=== PATIENT | male | born 1990 | race Caucasian/White ===

== ENCOUNTER 2017-11-03 19:15 | Emergency (ER) | payer OTHER ==
[~2017-11-03] VITALS: Ht 167.6 cm; Wt 89.8 kg
[2017-11-03 19:22] VITALS: BP 163/96
--- NOTE | 2017-11-03 19:25 | NUR ---
PT.AMBULATED TO [facility]
--- NOTE | 2017-11-03 20:39 | NUR ---
PT AT XRAY
--- NOTE | 2017-11-03 20:39 | NUR ---
XRAY CALLED, WILL BRING PT TO -A
--- NOTE | 2017-11-03 20:49 | NUR ---
PT RETURN FROM XRAY
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
[2017-11-03] MEDS ORDERED: NACL 0.9% 1,000 ML IV ONE (21:20)
[2017-11-03] MEDS ORDERED: FAMOTIDINE 20 MG/2 ML VIAL IVP ONE (21:20)
[2017-11-03] MEDS ORDERED: ONDANSETRON 4 MG/2 ML VIAL IVP ONE (21:20)
[2017-11-03 22:05] LABS: ALBUMIN 3.8 g/dL (3.4-5.0); BILIRUBIN,DIRECT 0.1 mg/dL (0.0-0.3); CREATININE 0.8 mg/dL (0.7-1.3); TOTAL BILIRUBIN 0.4 mg/dL (0.0-1.0)
[2017-11-03 22:19] LABS: APPEARANCE,URINE CLEAR (CLEAR); BILIRUBIN,URINE NEGATIVE (NEGATIVE); BLOOD, URINE TRACE-I (NEGATIVE); COLOR,URINE YELLOW (YELLOW); LEUKOCYTE ESTERASE ,URINE NEGATIVE (NEGATIVE); NITRITE, URINE NEGATIVE (NEGATIVE); PH,URINE 6.5 (5.0-9.0); UGLUCOSE NEGATIVE (NEGATIVE)
[2017-11-03 22:28] LABS: HEMATOCRIT 48.6 % (36-52); HEMOGLOBIN 16.3 g/dL (12.0-18.0); MEAN CORPUSCULAR VOLUME 83 fL (80-94); RED BLOOD CELL COUNT(AUTO) 5.83 MIL/uL (4.20-6.10); WHITE BLOOD COUNT (AUTO) 8.8 K/uL (4.8-10.8)
[2017-11-03 22:29] LABS: MEAN CORPUSCULAR HEMOGLOBIN 28 pg (27-31); MEAN CORPUSCULAR HGB CONC 34 g/dL (33-37); PLATELET COUNT (AUTO) 218 K/uL (140-450); RED CELL DISTRIBUTION WIDTH 13.9 % (11.6-13.7)
[2017-11-03 22:30] LABS: BASOPHILS % (AUTO) 0.1 % (0.0-2.0); EOSINOPHILS # (AUTO) 0.1 K/uL (0-0.4); LYMPHOCYTES # (AUTO) 2.2 K/uL (2.0-11.5); LYMPHOCYTES % (AUTO) 24.4 % (20.5-51.1); MONOCYTES # (AUTO) 0.7 K/uL (0.8-1.0); MONOCYTES % (AUTO) 8.1 % (1.7-9.3); NEUTROPHILS # (AUTO) 5.9 K/uL (1.8-7.7); NEUTROPHILS % (AUTO) 66.4 % (42.2-75.2)
[2017-11-03 22:46] LABS: RBC,URINE 0-5 (RARE) /HPF (0-5); WBC,URINE 0-5 (RARE) /HPF (0-5)
--- NOTE | 2017-11-03 23:11 | NUR ---
Patient being evaluated by physician at bedside.
[2017-11-03 23:27] VITALS: BP 144/96
--- NOTE | 2017-11-03 23:27 | NUR ---
Patient discharged with v/s stable. Written and verbal after care instructions given and explained. Patient alert, oriented and verbalized understanding of instructions. Ambulatory with steady gait. All questions addressed prior to discharge. ID band removed. Patient advised to follow up with PMD. Rx of OMEPRAZOLE 40 MG, ZOFRAN 4 MG ODT given. Patient educated on indication of medication including possible reaction and side effects. Opportunity to ask questions provided and answered.
== END 2017-11-03 23:27 | disposition home or self-care (01) ==
LOC: MED 19:15
DX: K29.00 Acute gastritis without bleeding (principal); F10.10 Alcohol abuse, uncomplicated
CPT/HCPCS: 36415; 74022; 80076; 81001; 82565; 83690; 85025; 96361; 96374; 96375; 99285; J2405; J3490

== ENCOUNTER 2017-12-05 17:16 | Emergency (ER) | payer OTHER ==
[~2017-12-05] VITALS: Ht 172.7 cm; Wt 87.6 kg
[2017-12-05 17:28] VITALS: BP 133/73
--- NOTE | 2017-12-05 17:34 | NUR ---
PT AMBULATES BACK TO THE LOBBY
--- NOTE | 2017-12-05 18:55 | NUR ---
Pt presents to ED with n/v/d x2 days with lower central abdominal pain 10/10 x2 days. Pt states pain intermittent. Pt states no urination drainage. VSS. ER MD aware. continue to monitor.
[2017-12-05] MEDS ORDERED: NACL 0.9% 1,000 ML IV ONE (19:45)
[2017-12-05] MEDS ORDERED: ONDANSETRON 4 MG/2 ML VIAL IVP ONE (19:45)
[2017-12-05 20:59] LABS: BASOPHILS % (AUTO) 0.3 % (0.0-2.0); EOSINOPHILS # (AUTO) 0.2 K/uL (0-0.4); EOSINOPHILS % (AUTO) 1.8 % (0.0-4.0); HEMATOCRIT 47.3 % (36-52); HEMOGLOBIN 15.9 g/dL (12.0-18.0); LYMPHOCYTES # (AUTO) 2.6 K/uL (2.0-11.5); LYMPHOCYTES % (AUTO) 29.8 % (20.5-51.1); MEAN CORPUSCULAR HEMOGLOBIN 28 pg (27-31); MEAN CORPUSCULAR HGB CONC 34 g/dL (33-37); MEAN CORPUSCULAR VOLUME 83.2 fL (80-94); MONOCYTES # (AUTO) 1.1 K/uL (0.8-1.0); MONOCYTES % (AUTO) 12.4 % (1.7-9.3); NEUTROPHILS # (AUTO) 4.9 K/uL (1.8-7.7); NEUTROPHILS % (AUTO) 55.7 % (42.2-75.2); PLATELET COUNT (AUTO) 236 K/uL (140-450); RED BLOOD CELL COUNT(AUTO) 5.69 MIL/uL (4.20-6.10); RED CELL DISTRIBUTION WIDTH 13.9 % (11.6-13.7); WHITE BLOOD COUNT (AUTO) 8.8 K/uL (4.8-10.8)
[2017-12-05 21:11] LABS: ANION GAP 15.1 (8-16); CARBON DIOXIDE 28.7 mmol/L (21-32); CREATININE 0.8 mg/dL (0.7-1.3); POTASSIUM 3.8 mmol/L (3.5-5.1)
[2017-12-05 21:17] LABS: ALBUMIN 3.5 g/dL (3.4-5.0); TOTAL BILIRUBIN 0.6 mg/dL (0.0-1.0)
[2017-12-05 21:27] LABS: APPEARANCE,URINE CLEAR (CLEAR); BILIRUBIN,URINE NEGATIVE (NEGATIVE); BLOOD, URINE 1+ (NEGATIVE); COLOR,URINE YELLOW (YELLOW); LEUKOCYTE ESTERASE ,URINE NEGATIVE (NEGATIVE); NITRITE, URINE NEGATIVE (NEGATIVE); UGLUCOSE NEGATIVE (NEGATIVE)
[2017-12-05 21:38] LABS: BARBITURATE, URINE NEG. ng/ml (NEG <=200); BENZODIAZEPINE, URINE NEG. ng/mL (NEG <=200); CANNABINOID, URINE NEG. ng/mL (NEG <=50); COCAINE, URINE NEG. ng/mL (NEG <=300); OPIATE, URINE NEG. ng/mL (NEG <=2000); PHENCYCLIDINE SCREEN,URINE NEG. ng/mL (NEG <=25)
[2017-12-05 21:57] VITALS: BP 133/73
--- NOTE | 2017-12-05 21:57 | NUR ---
Patient discharged with v/s stable. Written and verbal after care instructions given and explained. Patient verbalized understanding. Ambulatory with steady gait. All questions addressed prior to discharge. Advised to follow up with PMD.
[2017-12-05 22:18] LABS: RBC,URINE 0-5 (RARE) /HPF (0-5); WBC,URINE 0-5 (RARE) /HPF (0-5)
== END 2017-12-05 21:57 | disposition home or self-care (01) ==
LOC: MED 17:16
DX: R11.2 Nausea with vomiting, unspecified (principal); E86.0 Dehydration; R03.0 Elevated blood-pressure reading, without diagnosis of hypertension; F10.239 Alcohol dependence with withdrawal, unspecified
CPT/HCPCS: 36415; 80053; 80305; 81001; 83690; 85025; 96361; 96374; 99284; J2405; J7030

== ENCOUNTER 2018-07-31 04:55 | Emergency (ER) | payer OTHER ==
[~2018-07-31] VITALS: Ht 177.8 cm; Wt 90.7 kg
[2018-07-31 05:00] VITALS: BP 134/87
--- NOTE | 2018-07-31 05:00 | NUR ---
TO BED # 8 AMBULATORY, REPORT GIVEN TO JASON CHENG
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
--- NOTE | 2018-07-31 05:22 | NUR ---
DR ARREGUIN AT BEDSIDE FOR PT EVALUATION
[2018-07-31] MEDS ORDERED: ONDANSETRON 4 MG ODT PO ONE (05:45)
[2018-07-31] MEDS ORDERED: DICYCLOMINE 20 MG/2 ML VIAL IM ONE (05:45)
--- NOTE | 2018-07-31 06:17 | NUR ---
PT APPEARS TO BE SLEEPING IN NO APPEARENT DISTRESS. WILL CONTINUE TO MONITOR
[2018-07-31 07:14] VITALS: BP 134/87
--- NOTE | 2018-07-31 07:15 | NUR ---
Patient discharged with v/s stable. Written and verbal after care instructions given and explained. Patient verbalized understanding. Ambulatory with steady gait. All questions addressed prior to discharge. Advised to follow up with PMD. WALKED PATIENT TO CAR SO HE COULD GET PHONE TO CALL FOR AN UBER.
== END 2018-07-31 07:15 | disposition home or self-care (01) ==
LOC: MED 04:55
DX: F43.20 Adjustment disorder, unspecified (principal); R11.2 Nausea with vomiting, unspecified; R19.7 Diarrhea, unspecified; F12.90 Cannabis use, unspecified, uncomplicated
CPT/HCPCS: 99283; J0500; Q0162

== ENCOUNTER 2018-08-02 12:16 | Emergency (ER) | payer OTHER ==
[~2018-08-02] VITALS: Ht 182.9 cm; Wt 90.7 kg
[2018-08-02 12:27] VITALS: BP 159/108
[2018-08-02 13:35] LABS: LYMPHOCYTES # (AUTO) 2.3 K/uL (2.0-11.5); MONOCYTES # (AUTO) 1.3 K/uL (0.8-1.0); WHITE BLOOD COUNT (AUTO) 10.2 K/uL (4.8-10.8)
[2018-08-02 13:41] LABS: MEAN CORPUSCULAR HGB CONC 34 g/dL (33-37)
--- NOTE | 2018-08-02 13:42 | NUR ---
PT AMBULATED TO ER BED 02
[2018-08-02 13:43] LABS: HEMATOCRIT 55.9 % (36-52); HEMOGLOBIN 18.7 g/dL (12.0-18.0); MEAN CORPUSCULAR VOLUME 81.8 fL (80-94); RED BLOOD CELL COUNT(AUTO) 6.83 MIL/uL (4.20-6.10)
[2018-08-02 13:44] LABS: BASOPHILS % (AUTO) 0.2 % (0.0-2.0); EOSINOPHILS % (AUTO) 1.5 % (0.0-4.0); LYMPHOCYTES % (AUTO) 22.1 % (20.5-51.1); MEAN CORPUSCULAR HEMOGLOBIN 27 pg (27-31); MONOCYTES % (AUTO) 12.7 % (1.7-9.3); NEUTROPHILS # (AUTO) 6.5 K/uL (1.8-7.7); NEUTROPHILS % (AUTO) 63.5 % (42.2-75.2); PLATELET COUNT (AUTO) 287 K/uL (140-450); RED CELL DISTRIBUTION WIDTH 13.1 % (11.6-13.7)
[2018-08-02 13:45] LABS: EOSINOPHILS # (AUTO) 0.2 K/uL (0-0.4)
--- NOTE | 2018-08-02 13:45 | NUR ---
28 YO MALE BIB . AMBULATORY W/ STEADY GATE. C/O ABD PAIN, +NAUSEA,+VOMITING, +DIARRHEA. PT STATES SYMPTOMS STARTED TUESDAY. PT STATES 10 OUT OF 10 AMBDOMINAL PAIN IN THE UPPER MEDIAL QUADTRANT. PT CAME TO [facility] ON TUESDAY FOR THE SAME SYMPTOMS AND SYMPTOMS HAVE SINCE GOTTEN WORSE. PT STATES VOMITING IS CLEAR EMESIS. PT STATES DIAREAH HAS NO SIGNS OF BLOOD OR DARK STOOL. SKIN TURGOR IS NON-TENTING. AAOX4. PT STATES TO HAVE BEEN DRINKING HEAVILY TUESDAY NIGHT. PT IN GOWN IN BED; HOB ELEVATED; BED IN LOWER LOCKED POSITION; SIDERAILS UP X1. VSS, RESPIRATIONS EQUAL WITH OUT DISTRESS. ER MD MADE AWARE OF PATIENTS STATUS. HX: ASTHMA, HYPERTENSION RX: INHALER, HYPERTENSIVE MEDICATION (PT DOES NOT REMEBER THE NAME)
[2018-08-02 13:49] LABS: ALBUMIN 4.6 g/dL (3.4-5.0); ANION GAP 19.5 (8-16); CARBON DIOXIDE 30.2 mmol/L (21-32); CREATININE 0.9 mg/dL (0.7-1.3); POTASSIUM 4.7 mmol/L (3.5-5.1); TOTAL BILIRUBIN 2.1 mg/dL (0.0-1.0)
[2018-08-02] MEDS ORDERED: ONDANSETRON 4 MG/2 ML VIAL IVP ONE (14:00)
[2018-08-02] MEDS ORDERED: KETOROLAC 30 MG/ML VIAL IVP ONE (14:00)
[2018-08-02] MEDS ORDERED: ONDANSETRON 4 MG ODT PO ONE (14:00)
[2018-08-02] MEDS ORDERED: NACL 0.9% 1,000 ML IV ONE (14:00)
--- NOTE | 2018-08-02 14:15 | NUR ---
IV STARTED: FLUSHED WELL W/O RESISTANCE. NO REDNESS OF SWELLING NOTED. PT TOLERATED WELL.
[2018-08-02 14:53] VITALS: BP 143/108
--- NOTE | 2018-08-02 14:53 | NUR ---
Patient discharged with v/s stable. Written and verbal after care instructions given and explained. Patient alert, oriented and verbalized understanding of instructions. Ambulatory with steady gait. All questions addressed prior to discharge. ID band removed. Patient advised to follow up with PMD. Rx of Cipro,motrin, zofran, immodium given. Patient educated on indication of medication including possible reaction and side effects. Opportunity to ask questions provided and answered.
== END 2018-08-02 14:53 | disposition home or self-care (01) ==
LOC: MED 12:16
DX: R10.13 Epigastric pain (principal); R11.2 Nausea with vomiting, unspecified; R19.7 Diarrhea, unspecified; J45.909 Unspecified asthma, uncomplicated; I10 Essential (primary) hypertension
CPT/HCPCS: 36415; 80053; 83690; 85025; 96361; 96374; 96375; 99283; J1885; J2405; J7030

== ENCOUNTER 2019-03-25 13:15 | Emergency (ER) | payer OTHER ==
[~2019-03-25] VITALS: Ht 172.7 cm; Wt 86.2 kg
[2019-03-25 13:38] VITALS: BP 165/90
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
--- NOTE | 2019-03-25 15:11 | NUR ---
DR. ANN AT BEDSIDE
[2019-03-25] MEDS ORDERED: NACL 0.9% 1,000 ML IV ONE (15:20)
--- NOTE | 2019-03-25 15:31 | NUR ---
DATA CENTER PROJECT MANAGER AT BEDSIDE
--- NOTE | 2019-03-25 15:37 | NUR ---
PRODUCTION BORING MACHINE OPERATOR AT BEDSIDE
[2019-03-25 15:39] LABS: BASOPHILS % (AUTO) 0.4 % (0.0-2.0); EOSINOPHILS % (AUTO) 0.4 % (0.0-4.0); HEMATOCRIT 44.7 % (36-52); HEMOGLOBIN 15.1 g/dL (12.0-18.0); LYMPHOCYTES # (AUTO) 1.1 K/uL (2.0-11.5); MEAN CORPUSCULAR HEMOGLOBIN 28 pg (27-31); MEAN CORPUSCULAR HGB CONC 34 g/dL (33-37); MONOCYTES # (AUTO) 1.2 K/uL (0.8-1.0); MONOCYTES % (AUTO) 11.3 % (1.7-9.3); NEUTROPHILS # (AUTO) 7.9 K/uL (1.8-7.7); NEUTROPHILS % (AUTO) 76.9 % (42.2-75.2); PLATELET COUNT (AUTO) 191 K/uL (140-450); RED BLOOD CELL COUNT(AUTO) 5.32 MIL/uL (4.20-6.10); RED CELL DISTRIBUTION WIDTH 14.2 % (11.6-13.7); WHITE BLOOD COUNT (AUTO) 10.3 K/uL (4.8-10.8)
[2019-03-25] MEDS ORDERED: KETOROLAC 30 MG/ML VIAL IVP ONE (15:55)
[2019-03-25 15:57] LABS: ALBUMIN 3.6 g/dL (3.4-5.0); ANION GAP 15.2 (8-16); CARBON DIOXIDE 28.3 mmol/L (21-32); CREATININE 0.7 mg/dL (0.7-1.3); POTASSIUM 3.5 mmol/L (3.5-5.1); TOTAL BILIRUBIN 0.9 mg/dL (0.0-1.0)
--- NOTE | 2019-03-25 16:28 | NUR ---
INFORMED EMT OF ORTHO IMMOBILIZER ORDER
[2019-03-25 16:40] VITALS: BP 127/69
--- NOTE | 2019-03-25 16:40 | NUR ---
Patient discharged with v/s stable. Written and verbal after care instructions given and explained. Patient alert, oriented and verbalized understanding of instructions. Ambulatory with steady gait. All questions addressed prior to discharge. ID band removed. Patient advised to follow up with PMD. Rx of IBU given. Patient educated on indication of medication including possible reaction and side effects. Opportunity to ask questions provided and answered.
== END 2019-03-25 16:40 | disposition home or self-care (01) ==
LOC: MED 13:15
DX: S80.02XA Contusion of left knee, initial encounter (principal); E86.0 Dehydration; F10.10 Alcohol abuse, uncomplicated; R55 Syncope and collapse; F41.9 Anxiety disorder, unspecified; W19.XXXA Unspecified fall, initial encounter; Y93.89 Activity, other specified; Y92.89 Other specified places as the place of occurrence of the external cause; Y99.8 Other external cause status
CPT/HCPCS: 29505; 36415; 73590; 80053; 85025; 96361; 96374; 99284; J1885; J7030; Q0092

== ENCOUNTER 2019-12-17 14:31 | Emergency (ER) | payer OTHER ==
[~2019-12-17] VITALS: Ht 172.7 cm; Wt 79.8 kg
[2019-12-17 14:37] VITALS: BP 146/94
--- NOTE | 2019-12-17 14:43 | NUR ---
Patient ambulated to bed 11. RN evaluating patient at bedside.
--- NOTE | 2019-12-17 14:50 | NUR ---
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 PT STATES HE HAS BEEN DRINKING HEAVILY FOR THE LAST 2 WKS, HAD ONE DRINK TODAY AND INHALING KEYBOARD DELIVERY REPRESENTATIVE AND IS NOW FEELING WORSE. PT STATES HE FEELS "SHAKY" AND ANXIOUS. RR EVEN AND UNLABORED. PT PLACED ON THE MONITOR. WILL CONTINUE TO MONITOR. MEDHX: ANXIETY ALLERGIES: NKA
--- NOTE | 2019-12-17 15:18 | NUR ---
DR EM AT BEDSIDE EXAMINING PT
[2019-12-17 15:32] VITALS: BP 138/88
--- NOTE | 2019-12-17 15:34 | NUR ---
Patient discharged with v/s stable. Written and verbal after care instructions given and explained. Patient alert, oriented and verbalized understanding of instructions. Ambulatory with steady gait. All questions addressed prior to discharge. ID band removed. Patient advised to follow up with PMD. Rx of ZOFRAN AND LORAZEPAM given. Patient educated on indication of medication including possible reaction and side effects. Opportunity to ask questions provided and answered.
== END 2019-12-17 15:34 | disposition home or self-care (01) ==
LOC: MED 14:31
DX: F10.239 Alcohol dependence with withdrawal, unspecified (principal); F18.90 Inhalant use, unspecified, uncomplicated; R03.0 Elevated blood-pressure reading, without diagnosis of hypertension; F41.9 Anxiety disorder, unspecified; Z98.890 Other specified postprocedural states
CPT/HCPCS: 99283

== ENCOUNTER 2020-06-11 11:24 | Emergency (ER) | payer OTHER ==
[~2020-06-11] VITALS: Ht 170.2 cm; Wt 80.3 kg
[2020-06-11 11:46] VITALS: BP 145/93
[2020-06-11] MEDS ORDERED: ONDANSETRON 4 MG/2 ML VIAL IVP ONE (11:55)
[2020-06-11] MEDS ORDERED: FAMOTIDINE 20 MG/2 ML VIAL IVP ONE (11:55)
[2020-06-11] MEDS ORDERED: NACL 0.9% 1,000 ML IV ONE (11:55)
--- NOTE | 2020-06-11 12:10 | NUR ---
Pt reports binge drinking x3 weeks and using meth for the 1st time yesterday. Pt states today he woke up nauseous, vomiting and shakey. Pt also c/o epigastric/abd pain that began while he was vomiting. Denies chest pain/sob. Abd soft/flat and non tender to palpation. LBM today - regular per pt. Bowel sounds present x4. Bed in low position, side rail up x1.
[2020-06-11 12:11] LABS: BASOPHILS % (AUTO) 0.5 % (0.0-2.0); EOSINOPHILS # (AUTO) 0.1 K/uL (0-0.4); EOSINOPHILS % (AUTO) 1.2 % (0.0-4.0); HEMATOCRIT 46.5 % (36-52); HEMOGLOBIN 16.2 g/dL (12.0-18.0); LYMPHOCYTES # (AUTO) 1.6 K/uL (2.0-11.5); LYMPHOCYTES % (AUTO) 21.4 % (20.5-51.1); MEAN CORPUSCULAR HEMOGLOBIN 30 pg (27-31); MEAN CORPUSCULAR HGB CONC 35 g/dL (33-37); MONOCYTES % (AUTO) 13.9 % (1.7-9.3); NEUTROPHILS # (AUTO) 4.7 K/uL (1.8-7.7); PLATELET COUNT (AUTO) 193 K/uL (140-450); RED BLOOD CELL COUNT(AUTO) 5.41 MIL/uL (4.20-6.10); WHITE BLOOD COUNT (AUTO) 7.5 K/uL (4.8-10.8)
[2020-06-11 12:30] LABS: ALBUMIN 4.1 g/dL (3.4-5.0); ANION GAP 12.8 (8-16); CARBON DIOXIDE 32.4 mmol/L (21-32); CREATININE 0.8 mg/dL (0.6-1.3); POTASSIUM 3.2 mmol/L (3.5-5.1); TOTAL BILIRUBIN 0.9 mg/dL (0.0-1.0)
[2020-06-11] MEDS ORDERED: LORazepam 2 MG/ML VIAL IVP ONE (12:55)
[2020-06-11] MEDS ORDERED: POTASSIUM CHLORIDE 20% 40 MEQ/15 ML UDC PO ONE (13:10)
[2020-06-11] MEDS ORDERED: MAGNESIUM OXIDE 400 MG TAB PO ONE (13:10)
[2020-06-11 14:28] VITALS: BP 145/93
== END 2020-06-11 14:29 | disposition home or self-care (01) ==
LOC: MED 11:24
DX: F10.239 Alcohol dependence with withdrawal, unspecified (principal); F15.10 Other stimulant abuse, uncomplicated; F12.90 Cannabis use, unspecified, uncomplicated; F17.210 Nicotine dependence, cigarettes, uncomplicated; I10 Essential (primary) hypertension; Z71.6 Tobacco abuse counseling; Z87.81 Personal history of (healed) traumatic fracture
CPT/HCPCS: 36415; 80053; 83690; 85025; 93005; 96361; 96374; 96375; 99284; J2060; J2405; J3490; J7030

== ENCOUNTER 2020-07-02 12:42 | Emergency (ER) | payer OTHER ==
[~2020-07-02] VITALS: Ht 175.3 cm; Wt 78.9 kg
[2020-07-02 12:49] VITALS: BP 142/108
--- NOTE | 2020-07-02 12:49 | NUR ---
PT AMBULATED TO BED 11, STEADY GAIT.
--- NOTE | 2020-07-02 12:54 | NUR ---
DR. BERRIOS AT BEDSIDE.
--- NOTE | 2020-07-02 12:58 | NUR ---
30 Y/M PRESENTS TO ED FOR ALCOHOL DETOXIFICATION. PT REPORTS HE HAS BEEN DRINKING X 3 WEEKS ([employer] AND [employer]). REPORTS LAST DRINK WAS AT 2AM THIS MORNING. PT IS ALSO REPOARTS 8/10 HEAD PAIN, WITH L ARM NUMBNESS, CP 8/10 ON AND OFF. PT ALSO REPORTS DARK URINE, DENIES DYSURIA OR HEMATURIA. PT A & O X 4. RR EVEN AND UNLABORED. PMH- ASTHMA, HTN, ANXIETY NKDA
[2020-07-02] MEDS ORDERED: chlordiazePOXIDE 25 MG CAP PO STA (13:00)
[2020-07-02] MEDS ORDERED: ONDANSETRON 4 MG ODT PO ONE (13:05)
[2020-07-02 13:46] VITALS: BP 142/108
--- NOTE | 2020-07-02 13:47 | NUR ---
Patient discharged with v/s stable. Written and verbal after care instructions given and explained. Patient alert, oriented and verbalized understanding of instructions. Ambulatory with steady gait. All questions addressed prior to discharge. ID band removed. Patient advised to follow up with PMD. Rx of ZOFRAN AND LIBRIUM given. Patient educated on indication of medication including possible reaction and side effects. Opportunity to ask questions provided and answered. PT GIVEN A LIST OF RESOURCES FOR ALCOHOL WITHDRAWAL PROGRAMS.
== END 2020-07-02 13:47 | disposition home or self-care (01) ==
LOC: MED 12:42
DX: F10.239 Alcohol dependence with withdrawal, unspecified (principal); R20.2 Paresthesia of skin; I10 Essential (primary) hypertension
CPT/HCPCS: 93005; 99283; Q0162

== ENCOUNTER 2020-10-19 15:12 | Emergency (ER) | payer OTHER ==
[~2020-10-19] VITALS: Ht 175.3 cm; Wt 81.6 kg
[2020-10-19 15:20] VITALS: BP 121/90
--- NOTE | 2020-10-19 15:28 | NUR ---
PATIENT AMBULATED TO BED 1.
[2020-10-19] MEDS ORDERED: NACL 0.9% 1,000 ML IV ONE ×2 (15:35→17:00)
[2020-10-19] MEDS ORDERED: KETOROLAC 30 MG/ML VIAL IVP ONE (15:35)
[2020-10-19] MEDS ORDERED: ONDANSETRON 4 MG/2 ML VIAL IVP ONE (15:35)
[2020-10-19] MEDS ORDERED: PANTOPRAZOLE 40 MG INJ VIAL IVP ONE (15:40)
--- NOTE | 2020-10-19 15:42 | NUR ---
LAB at pt bedside.
--- NOTE | 2020-10-19 15:44 | NUR ---
30 y/o male c/o abdominal pain 03/07. Pt states he has been drinking [id number], feels dehydrated and weak X1day. Pt states he felt alcohol withdrawls and palpations so "I tried a little meth to help". +N/V has vomited X12 times today, 4 times since arrival. PMH: HTN, anxiety, meth use NKA
[2020-10-19 16:00] LABS: BASOPHILS # (AUTO) 0.2 K/uL (0.00-0.22); BASOPHILS % (AUTO) 1.4 % (0.0-2.0); EOSINOPHILS % (AUTO) 0.1 % (0.0-4.0); HEMATOCRIT 51.6 % (36-52); HEMOGLOBIN 17.3 g/dL (12.0-18.0); LYMPHOCYTES # (AUTO) 1.3 K/uL (2.0-11.5); LYMPHOCYTES % (AUTO) 10.1 % (20.5-51.1); MEAN CORPUSCULAR HEMOGLOBIN 29 pg (27-31); MEAN CORPUSCULAR HGB CONC 34 g/dL (33-37); MEAN CORPUSCULAR VOLUME 87.7 fL (80-94); MONOCYTES # (AUTO) 1.4 K/uL (0.8-1.0); MONOCYTES % (AUTO) 10.5 % (1.7-9.3); NEUTROPHILS # (AUTO) 10.2 K/uL (1.8-7.7); NEUTROPHILS % (AUTO) 77.9 % (42.2-75.2); PLATELET COUNT (AUTO) 257 K/uL (140-450); RED BLOOD CELL COUNT(AUTO) 5.89 MIL/uL (4.20-6.10); RED CELL DISTRIBUTION WIDTH 14.6 % (11.6-13.7); WHITE BLOOD COUNT (AUTO) 13.1 K/uL (4.8-10.8)
--- NOTE | 2020-10-19 16:02 | NUR ---
Dr. Ramirez at pt bedside.
[2020-10-19 16:21] LABS: ALBUMIN 4.5 g/dL (3.4-5.0); ANION GAP 17.8 (8-16); CARBON DIOXIDE 26.4 mmol/L (21-32); POTASSIUM 4.2 mmol/L (3.5-5.1); TOTAL BILIRUBIN 0.6 mg/dL (0.0-1.0)
--- NOTE | 2020-10-19 16:41 | NUR ---
Pt ambulated to restroom with a steady gait.
[2020-10-19 18:35] VITALS: BP 121/90
--- NOTE | 2020-10-19 18:37 | NUR ---
Patient discharged with v/s stable. Written and verbal after care instructions given and explained. Patient alert, oriented and verbalized understanding of instructions. Ambulatory with steady gait. All questions addressed prior to discharge. ID band removed. Patient advised to follow up with PMD. Rx of zofran 4mg odt prn N/V given. Patient educated on indication of medication including possible reaction and side effects. Opportunity to ask questions provided and answered.
== END 2020-10-19 18:37 | disposition home or self-care (01) ==
LOC: MED 15:12
DX: R11.2 Nausea with vomiting, unspecified (principal); R10.9 Unspecified abdominal pain; F15.10 Other stimulant abuse, uncomplicated; F41.9 Anxiety disorder, unspecified; F20.9 Schizophrenia, unspecified; I10 Essential (primary) hypertension
CPT/HCPCS: 36415; 80053; 81002; 83690; 85025; 96361; 96374; 96375; 99284; C9113; G0482; J1885; J2405

== ENCOUNTER 2021-02-03 17:29 | Emergency (ER) | payer OTHER ==
[~2021-02-03] VITALS: Ht 175.3 cm; Wt 81.6 kg
[2021-02-03 17:33] VITALS: BP 150/90
--- NOTE | 2021-02-03 17:45 | NUR ---
Patient wheelchair assisted to bed 5
--- NOTE | 2021-02-03 17:54 | NUR ---
Dr. Birmingham at bedside evaluating patient.
[2021-02-03] MEDS ORDERED: MULTIVITAMIN-12 10 ML, THIAMINE 100 MG, MAGNESIUM SULFATE 50% 2,000 MG, FOLIC ACID 1 MG... IV STA ×5 (18:01)
--- NOTE | 2021-02-03 18:19 | NUR ---
PHARMACY CALLED REGARDING BANANA BAG, STATE THEY WILL BRING SOON
--- NOTE | 2021-02-03 18:22 | NUR ---
30 YEAR OLD MALE BROUGHT IN BY MOTHER FOR COMPLANIS OF RUQ ABDOMINAL PAIN AND N/V/D X TODAY. MOTHER STATES PT HAS BEEN DRINKING NONSTOP SINCE YESTERDAY, AND HAS ALSO DONE METH TODAY. PT LETHARGIC, BREATHING EVEN AND UNLABORED, SKIN WARM AND DRY. BED IN LOWEST POSITION, LOCKED, BED RAIL UPX1. PMH - DEPRESSION, ANXIETY ALLERGIES - NKA
[2021-02-03 18:33] LABS: BASOPHILS # (AUTO) 0.2 K/uL (0.00-0.22); BASOPHILS % (AUTO) 2.6 % (0.0-2.0); EOSINOPHILS % (AUTO) 0.4 % (0.0-4.0); HEMATOCRIT 44.2 % (36-52); HEMOGLOBIN 15.1 g/dL (12.0-18.0); LYMPHOCYTES % (AUTO) 33.2 % (20.5-51.1); MEAN CORPUSCULAR HEMOGLOBIN 30 pg (27-31); MEAN CORPUSCULAR HGB CONC 34 g/dL (33-37); MEAN CORPUSCULAR VOLUME 86.3 fL (80-94); MONOCYTES # (AUTO) 0.4 K/uL (0.8-1.0); MONOCYTES % (AUTO) 7.2 % (1.7-9.3); NEUTROPHILS # (AUTO) 3.5 K/uL (1.8-7.7); NEUTROPHILS % (AUTO) 56.6 % (42.2-75.2); PLATELET COUNT (AUTO) 253 K/uL (140-450); RED BLOOD CELL COUNT(AUTO) 5.12 MIL/uL (4.20-6.10); RED CELL DISTRIBUTION WIDTH 13.7 % (11.6-13.7); WHITE BLOOD COUNT (AUTO) 6.1 K/uL (4.8-10.8)
[2021-02-03] MEDS ORDERED: LID5T TP (18:52)
[2021-02-03 18:56] LABS: ALBUMIN 3.9 g/dL (3.4-5.0); ANION GAP 18.9 (8-16); CARBON DIOXIDE 25.7 mmol/L (21-32); CREATININE 0.8 mg/dL (0.6-1.3); POTASSIUM 3.6 mmol/L (3.5-5.1); TOTAL BILIRUBIN 0.5 mg/dL (0.0-1.0)
--- NOTE | 2021-02-03 19:08 | NUR ---
Report received from SKYLAR Smith for continuation of care.
--- NOTE | 2021-02-03 19:09 | NUR ---
REPORT GIVEN TO EDIN CHENG, TRANSFER OF CARE AT THIS TIME
[2021-02-03] MEDS ORDERED: ONDA-24 PO (19:17)
--- NOTE | 2021-02-03 19:40 | NUR ---
Patient laying in bed, locked in lowest position, x2 side rails up for patient safety, HOB slightly elevated. Patient resting in bed eyes closed, breathing even and unlabored, chest expansion symmetrical. NAD noted, will continue to monitor. at bedside.
--- NOTE | 2021-02-03 19:50 | NUR ---
Patient awake AOx4, reports he needs to use the bathroom, patient ambulated without assistance to bathroom w steady gait, denies dizzyness. Patient denies pain. NAD noted.
[2021-02-03 20:02] VITALS: BP 145/88
== END 2021-02-03 20:02 | disposition home or self-care (01) ==
LOC: MED 17:29
DX: F10.10 Alcohol abuse, uncomplicated (principal); F15.90 Other stimulant use, unspecified, uncomplicated; I10 Essential (primary) hypertension; F41.9 Anxiety disorder, unspecified; F20.9 Schizophrenia, unspecified; Z79.899 Other long term (current) drug therapy
CPT/HCPCS: 36415; 80053; 81002; 83690; 85025; 96365; 99284; A9153; J3411; J3475; J3490; J7030

== ENCOUNTER 2021-03-18 13:08 | Emergency (ER) | payer OTHER ==
[~2021-03-18] VITALS: Ht 175.3 cm; Wt 81.2 kg
[~2021-03-18 13:08] MED LIST: ONDA-24 PO
[2021-03-18 13:21] VITALS: BP 151/87
--- NOTE | 2021-03-18 14:14 | NUR ---
PT TAKEN TO BED 9.
[2021-03-18] MEDS ORDERED: ONDANSETRON 4 MG ODT PO ONE (14:20)
--- NOTE | 2021-03-18 14:38 | NUR ---
30/M presents to ED with c/o n/v since yesterday after drinking alcohol at a [employer]. Pt also c/o anxiety d/t vomiting. No active vomiting noted while pt in ED. Pt states he a regular alcohol drinker.
[2021-03-18 14:43] LABS: APPEARANCE,URINE CLEAR (CLEAR); BILIRUBIN,URINE NEGATIVE (NEGATIVE); BLOOD, URINE TRACE-I (NEGATIVE); COLOR,URINE YELLOW (YELLOW); LEUKOCYTE ESTERASE ,URINE NEGATIVE (NEGATIVE); NITRITE, URINE NEGATIVE (NEGATIVE); UGLUCOSE NEGATIVE (NEGATIVE)
[2021-03-18] MEDS ORDERED: ONDA-24 SL (15:26)
[2021-03-18 15:35] VITALS: BP 151/87
== END 2021-03-18 15:36 | disposition home or self-care (01) ==
LOC: MED 13:08
DX: F10.129 Alcohol abuse with intoxication, unspecified (principal); R11.2 Nausea with vomiting, unspecified; I10 Essential (primary) hypertension; Z79.899 Other long term (current) drug therapy
CPT/HCPCS: 81003; 99283; Q0162

== ENCOUNTER 2021-07-24 00:38 | Emergency (ER) | payer OTHER ==
[~2021-07-24] VITALS: Ht 175.3 cm; Wt 72.1 kg
[~2021-07-24 00:38] MED LIST changes: +ONDA-188 PO; +ONDA-188 SL; -ONDA-24 PO
[2021-07-24 00:40] VITALS: BP 157/103
--- NOTE | 2021-07-24 00:40 | NUR ---
TO BED AMBULATORY
--- NOTE | 2021-07-24 00:45 | NUR ---
RECEIVED IN BED 11 WITH C/O EXCESSIVE CONSUMPTION OF ALCOHOL AND RECENT METH USE. PTS AT BEDSIDE AND SAYS PT HAS BEEN ON 5150'S IN THE PAST AND HAS H/O DEPRESSION. PT SLOW TO ANSWER QUESTIONS, SPEACH IS SLIGHTLY GARBLED. IS ALERT AND ORIENTED, FOLLOWING COMMANDS
[2021-07-24] MEDS ORDERED: NACL 0.9% 2,000 ML IV ONE (01:30)
[2021-07-24 01:59] LABS: BARBITURATE, URINE NEGATIVE ng/ml (NEG <=200); BENZODIAZEPINE, URINE POSITIVE ng/mL (NEG <=200); CANNABINOID, URINE NEGATIVE ng/mL (NEG <=50); COCAINE, URINE POSITIVE ng/mL (NEG <=300); OPIATE, URINE NEGATIVE ng/mL (NEG <=2000); PHENCYCLIDINE SCREEN,URINE NEGATIVE ng/mL (NEG <=25)
--- NOTE | 2021-07-24 03:00 | NUR ---
RESTING IN BED WITH EYES CLOSED, SNORING. AT BEDSIDE
--- NOTE | 2021-07-24 03:15 | NUR ---
AWAKE, AMBULATES AT BEDSIDE WITH STEADY GAIT
[2021-07-24 03:25] VITALS: BP 157/103
== END 2021-07-24 03:25 | disposition home or self-care (01) ==
LOC: MED 00:38
DX: F10.129 Alcohol abuse with intoxication, unspecified (principal); F14.10 Cocaine abuse, uncomplicated; I10 Essential (primary) hypertension; Z79.899 Other long term (current) drug therapy; Z98.890 Other specified postprocedural states
CPT/HCPCS: 80305; 96360; 99283

== ENCOUNTER 2022-12-19 17:47 | Emergency (ER) | payer OTHER ==
[~2022-12-19] VITALS: Ht 175.3 cm; Wt 77.1 kg
[2022-12-19 17:55] VITALS: BP 137/96
--- NOTE | 2022-12-19 18:07 | NUR ---
TAKEN TO BED 10 IN W/C
[2022-12-19] MEDS ORDERED: NACL 0.9% 1,000 ML IV ONE (18:20)
[2022-12-19] MEDS ORDERED: MORPHINE SULFATE 4 MG/ML SYR IVP ONE (18:20)
--- NOTE | 2022-12-19 18:31 | NUR ---
ASSUMED PATIENT CARE, NURSING ASSESSMENT COMPLETED.
[2022-12-19 18:38] LABS: BASOPHILS % (AUTO) 0.1 % (0.0-2.0); EOSINOPHILS # (AUTO) 0.1 K/uL (0-0.4); EOSINOPHILS % (AUTO) 0.6 % (0.0-4.0); HEMATOCRIT 46.9 % (36-52); HEMOGLOBIN 16.2 g/dL (12.0-18.0); LYMPHOCYTES # (AUTO) 2.6 K/uL (2.0-11.5); LYMPHOCYTES % (AUTO) 25.1 % (20.5-51.1); MEAN CORPUSCULAR HEMOGLOBIN 31 pg (27-31); MEAN CORPUSCULAR HGB CONC 34 g/dL (33-37); MEAN CORPUSCULAR VOLUME 89.3 fL (80-94); MONOCYTES # (AUTO) 1.3 K/uL (0.8-1.0); MONOCYTES % (AUTO) 12.4 % (1.7-9.3); NEUTROPHILS # (AUTO) 6.4 K/uL (1.8-7.7); NEUTROPHILS % (AUTO) 61.8 % (42.2-75.2); PLATELET COUNT (AUTO) 225 K/uL (140-450); RED BLOOD CELL COUNT(AUTO) 5.26 MIL/uL (4.20-6.10); RED CELL DISTRIBUTION WIDTH 13.1 % (11.6-13.7); WHITE BLOOD COUNT (AUTO) 10.3 K/uL (4.8-10.8)
[2022-12-19 18:56] LABS: ANION GAP 17.8 (8-16); ASPARTATE AMINOTRANSFERASE 144 U/L (15-37); CARBON DIOXIDE 25.7 mmol/L (21-32); CHLORIDE 99 mmol/L (98-107); GLUCOSE 119 mg/dL (74-106); LIPASE 201 U/L (73-393); POTASSIUM 3.5 mmol/L (3.5-5.1); SODIUM SERUM 139 mmol/L (136-145); TOTAL BILIRUBIN 0.6 mg/dL (0.0-1.0); UREA NITROGEN, BLOOD 2 mg/dL (7-18)
--- NOTE | 2022-12-19 19:06 | NUR ---
PATIENT AND IS UNABLE TO RECALL THE LOCATION OF WHERE INCIDENT HAPPENED. PER SHE CONVINCED HIM TO COME TO THE HOSPITAL, WHEN SHE SAW HIM AT THEIR HOME.
[2022-12-19 19:30] LABS: CREATININE 0.7 mg/dL (0.6-1.3); GFR ARICAN-AMERICAN 167 mL/min (>90)
--- NOTE | 2022-12-19 19:30 | NUR ---
Assumed care of patient at change of shift. Introduced self to patient and family, positioned patient for comfort. Bed to low position sr up. continue to monitor. Patient noted w/ bruising/hemator to right medial upper thigh, abrasion to right scalpular area and abrasion to left knee. Iv site patent and intact.
[2022-12-19 19:53] LABS: APPEARANCE,URINE CLEAR (CLEAR); BILIRUBIN,URINE NEGATIVE (NEGATIVE); BLOOD, URINE NEGATIVE (NEGATIVE); COLOR,URINE YELLOW (YELLOW); LEUKOCYTE ESTERASE ,URINE NEGATIVE (NEGATIVE); NITRITE, URINE NEGATIVE (NEGATIVE); UGLUCOSE NEGATIVE (NEGATIVE)
--- NOTE | 2022-12-19 21:36 | NUR ---
patient resting comfortably at this time in no acute distress. No change from previous/initial assessment. Iv site patent and intact. bed to low position sr up , continue to monitor.
[2022-12-19] MEDS ORDERED: ACET-10509 PO (21:49)
[2022-12-19] MEDS ORDERED: CYCL-711 PO (21:49)
[2022-12-19] MEDS ORDERED: IBUP-2213 PO (21:49)
--- NOTE | 2022-12-19 22:24 | NUR ---
Patient discharged with v/s stable. Written and verbal after care instructions given and explained. Patient alert, oriented and verbalized understanding of instructions. Ambulatory with steady gait. All questions addressed prior to discharge. ID band removed. Patient advised to follow up with PMD. Rx of flexeril, ibuprofen, and tylenol given. Patient educated on indication of medication including possible reaction and side effects. Opportunity to ask questions provided and answered.
[2022-12-19 22:26] VITALS: BP 120/62
== END 2022-12-19 22:24 | disposition home or self-care (01) ==
LOC: MED 17:47
DX: S70.12XA Contusion of left thigh, initial encounter (principal); S70.11XA Contusion of right thigh, initial encounter; S20.211A Contusion of right front wall of thorax, initial encounter; S80.12XA Contusion of left lower leg, initial encounter; S20.419A Abrasion of unspecified back wall of thorax, initial encounter; S39.93XA Unspecified injury of pelvis, initial encounter; Z20.822 Contact with and (suspected) exposure to COVID-19; I10 Essential (primary) hypertension; Z79.899 Other long term (current) drug therapy; Z79.1 Long term (current) use of non-steroidal anti-inflammatories (NSAID); V23.49XA Other motorcycle driver injured in collision with car, pick-up truck or van in traffic accident, initial encounter; Y93.89 Activity, other specified; Y92.410 Unspecified street and highway as the place of occurrence of the external cause; Y99.8 Other external cause status
CPT/HCPCS: 36415; 70450; 71260; 72125; 72170; 73552; 73590; 74177; 80053; 81003; 83690; 84484; 85025; 86886; 86900; 86901; 87426; 90471; 90715; 96361; 96374; 99285; J2270; J7030; Q9967

== ENCOUNTER 2022-12-22 21:42 | Emergency (ER) | payer OTHER ==
[~2022-12-22] VITALS: Ht 165.1 cm; Wt 74.8 kg
[~2022-12-22 21:42] MED LIST changes: +ACET-10509 PO; +CYCL-711 PO; +IBUP-2213 PO
[2022-12-22 22:04] VITALS: BP 130/95
--- NOTE | 2022-12-22 22:16 | NUR ---
Patient taken to bed 6.
--- NOTE | 2022-12-22 22:19 | NUR ---
IVÁN KATZ examining patient.
[2022-12-22] MEDS ORDERED: KETOROLAC 30 MG/ML VIAL IM ONE (22:35)
[2022-12-22] MEDS ORDERED: IBUP-2213 PO (22:41)
[2022-12-22] MEDS ORDERED: ACET-10509 PO (22:41)
[2022-12-22] MEDS ORDERED: CYCL-711 PO (22:41)
[2022-12-22 23:00] VITALS: BP 124/78
--- NOTE | 2022-12-22 23:00 | NUR ---
Patient discharged with v/s stable. Written and verbal after care instructions given and explained. Patient alert, oriented and verbalized understanding of instructions. Ambulatory with steady gait. All questions addressed prior to discharge. ID band removed. Patient advised to follow up with PMD. Rx of Flexeril, Tylenol and Ibuprofen given. Patient educated on indication of medication including possible reaction and side effects. Opportunity to ask questions provided and answered.
== END 2022-12-22 23:00 | disposition home or self-care (01) ==
LOC: MED 21:42
DX: S70.11XA Contusion of right thigh, initial encounter (principal); S30.0XXA Contusion of lower back and pelvis, initial encounter; S80.12XA Contusion of left lower leg, initial encounter; I10 Essential (primary) hypertension; Z79.899 Other long term (current) drug therapy; Z79.1 Long term (current) use of non-steroidal anti-inflammatories (NSAID); V29.498A Other motorcycle driver injured in collision with other motor vehicles in traffic accident, initial encounter; Y93.89 Activity, other specified; Y92.410 Unspecified street and highway as the place of occurrence of the external cause; Y99.8 Other external cause status
CPT/HCPCS: 96372; 99283; J1885

== ENCOUNTER 2023-02-20 01:10 | Emergency (ER) | payer OTHER ==
[~2023-02-20] VITALS: Ht 175.3 cm; Wt 78.9 kg
[2023-02-20 01:18] VITALS: BP 147/101; PULSE 119; RESP 20; TEMP 98; O2SAT 98
--- NOTE | 2023-02-20 01:29 | NUR ---
pt to bed 03
--- NOTE | 2023-02-20 01:34 | NUR ---
urine walked to lab.
--- NOTE | 2023-02-20 01:47 | NUR ---
PT SITTING IN BED AWAITING TO BE SEEN. PT ON MONITOR. ST NOTED. NO ECTOPY NOTED. PT HYPERTENSIVE 160/102 NOTED.
[2023-02-20] MEDS ORDERED: NALOXONE 0.4 MG/ML VIAL IVP ONE (02:10)
[2023-02-20] MEDS ORDERED: NACL 0.9% 1,000 ML IV ONE (02:10)
[2023-02-20 02:40] LABS: BARBITURATE, URINE NEGATIVE ng/ml (NEG <=200); BENZODIAZEPINE, URINE NEGATIVE ng/mL (NEG <=200); CANNABINOID, URINE NEGATIVE ng/mL (NEG <=50); COCAINE, URINE POSITIVE ng/mL (NEG <=300); OPIATE, URINE NEGATIVE ng/mL (NEG <=2000); PHENCYCLIDINE SCREEN,URINE NEGATIVE ng/mL (NEG <=25)
--- NOTE | 2023-02-20 02:41 | NUR ---
Dr. Chen examining patient.
[2023-02-20] MEDS ORDERED: ONDANSETRON 4 MG/2 ML VIAL IVP ONE (02:50)
--- NOTE | 2023-02-20 03:02 | NUR ---
MEDICATED PT ORDERED. PT'S AT THE BS. PT AWAKE AND ALERT. PT TALKING TO HIS .
[2023-02-20 03:13] LABS: BASOPHILS % (AUTO) 0.2 % (0.0-2.0); EOSINOPHILS % (AUTO) 0.2 % (0.0-4.0); HEMATOCRIT 40.1 % (36-52); HEMOGLOBIN 13.7 g/dL (12.0-18.0); LYMPHOCYTES # (AUTO) 1.6 K/uL (2.0-11.5); LYMPHOCYTES % (AUTO) 24.8 % (20.5-51.1); MEAN CORPUSCULAR HEMOGLOBIN 31 pg (27-31); MEAN CORPUSCULAR HGB CONC 34 g/dL (33-37); MEAN CORPUSCULAR VOLUME 90.5 fL (80-94); MONOCYTES # (AUTO) 0.9 K/uL (0.8-1.0); MONOCYTES % (AUTO) 13.8 % (1.7-9.3); NEUTROPHILS # (AUTO) 3.8 K/uL (1.8-7.7); PLATELET COUNT (AUTO) 187 K/uL (140-450); RED BLOOD CELL COUNT(AUTO) 4.43 MIL/uL (4.20-6.10); RED CELL DISTRIBUTION WIDTH 12.7 % (11.6-13.7); WHITE BLOOD COUNT (AUTO) 6.3 K/uL (4.8-10.8)
[2023-02-20 03:27] LABS: ALBUMIN 3.7 g/dL (3.4-5.0); ANION GAP 18.5 (8-16); ASPARTATE AMINOTRANSFERASE 113 U/L (15-37); CARBON DIOXIDE 24.7 mmol/L (21-32); CHLORIDE 100 mmol/L (98-107); CREATININE 0.6 mg/dL (0.6-1.3); GFR ARICAN-AMERICAN 200 mL/min (>90); GLUCOSE 106 mg/dL (74-106); POTASSIUM 4.2 mmol/L (3.5-5.1); SODIUM SERUM 139 mmol/L (136-145); TOTAL BILIRUBIN 0.5 mg/dL (0.0-1.0); UREA NITROGEN, BLOOD 4 mg/dL (7-18)
[2023-02-20 03:28] LABS: ACETAMINOPHEN < 0.5 ug/ml (10-30); SALICYLATE < 2.8 mg/dL (2.8-20.0)
--- NOTE | 2023-02-20 04:39 | NUR ---
Patient discharged with v/s stable. Written and verbal after care instructions given and explained. Patient verbalized understanding. Ambulatory with to car. All questions addressed prior to discharge. Advised to follow up with PMD and referrals within the week. Pt instructed to return to the ER, if condition worsens or to call 911 in the case of an emergency.
[2023-02-20 04:40] VITALS: BP 128/79; PULSE 92; RESP 20; TEMP 97.9; O2SAT 100
== END 2023-02-20 04:39 | disposition home or self-care (01) ==
LOC: MED 01:10
DX: F10.129 Alcohol abuse with intoxication, unspecified (principal); F14.10 Cocaine abuse, uncomplicated; R74.01 Elevation of levels of liver transaminase levels; I10 Essential (primary) hypertension; J45.909 Unspecified asthma, uncomplicated; Z79.899 Other long term (current) drug therapy
CPT/HCPCS: 36415; 80053; 80305; 85025; 96361; 96374; 96375; 99284; G0480; G0482; J2310; J2405; J7030

== ENCOUNTER 2023-07-10 14:04 | Emergency (ER) | payer OTHER ==
[~2023-07-10] VITALS: Ht 175.3 cm; Wt 78.5 kg
[2023-07-10 14:33] VITALS: BP 127/82; PULSE 80; RESP 18; TEMP 98.9; O2SAT 100
[2023-07-10] MEDS ORDERED: CYCL-711 PO (15:38)
[2023-07-10] MEDS ORDERED: IBUP-2213 PO (15:38)
[2023-07-10 16:40] VITALS: BP 125/82; PULSE 79; RESP 13; TEMP 98; O2SAT 100
== END 2023-07-10 16:40 | disposition home or self-care (01) ==
LOC: MED 14:04
DX: S20.211A Contusion of right front wall of thorax, initial encounter (principal); S11.83XA Puncture wound without foreign body of other specified part of neck, initial encounter; J45.909 Unspecified asthma, uncomplicated; I10 Essential (primary) hypertension; Z79.899 Other long term (current) drug therapy; V49.88XA Car occupant (driver) (passenger) injured in other specified transport accidents, initial encounter; Y93.89 Activity, other specified; Y92.89 Other specified places as the place of occurrence of the external cause; Y99.8 Other external cause status
CPT/HCPCS: 71101; 72050; 99284

== ENCOUNTER 2023-09-25 09:34 | Emergency (ER) | payer OTHER ==
[~2023-09-25] VITALS: Ht 175.3 cm; Wt 77.1 kg
[2023-09-25 10:02] VITALS: BP 133/88; PULSE 64; RESP 18; TEMP 98.5; O2SAT 100
[2023-09-25] MEDS ORDERED: KETOROLAC 30 MG/ML VIAL IM ONE (10:10)
[2023-09-25] MEDS ORDERED: LIDOCAINE 5% 1 EA PATCH TP ONE (10:40)
[2023-09-25] MEDS ORDERED: ACET-10509 PO ×2 (11:43→11:57)
[2023-09-25] MEDS ORDERED: IBUP-2213 PO ×2 (11:43→11:57)
[2023-09-25] MEDS ORDERED: LID5T TP ×2 (11:43→11:57)
== END 2023-09-25 12:00 | disposition home or self-care (01) ==
LOC: MED 09:34
DX: S20.212A Contusion of left front wall of thorax, initial encounter (principal); J45.909 Unspecified asthma, uncomplicated; I10 Essential (primary) hypertension; Z98.890 Other specified postprocedural states; Z79.899 Other long term (current) drug therapy; Z79.1 Long term (current) use of non-steroidal anti-inflammatories (NSAID); V23.49XA Other motorcycle driver injured in collision with car, pick-up truck or van in traffic accident, initial encounter; Y93.89 Activity, other specified; Y92.410 Unspecified street and highway as the place of occurrence of the external cause; Y99.8 Other external cause status
CPT/HCPCS: 71101; 96372; 99283; J1885